=== PATIENT | female | born 1935 | race Caucasian/White ===

== ENCOUNTER 2016-10-24 11:16 | Inpatient (IN) | payer MEDICARE ==
[~2016-10-24] VITALS: Ht 165.1 cm; Wt 49.4 kg
[~2016-10-24 11:16] MED LIST: FENTANYL 100 MCG/2 ML AMP IV ONE; LIDOCAINE/EPI 1% MDV 20 ML INFILTRATE ONE
[2016-10-24] MEDS ORDERED: SODIUM CHLORIDE 0.9% 1,000 ML ONE ×2 (11:56→15:25)
[2016-10-24] MEDS ORDERED: MORPHINE 2 MG/ML SYR ONE (14:34)
[2016-10-24] MEDS ORDERED: KCL CR 20 MEQ TAB PO ONE (14:34)
[2016-10-24] MEDS ORDERED: POTASSIUM CHLOR 10MEQ -ED ONLY 50 ML IV ONE (14:35)
[2016-10-24] MEDS ORDERED: HEPARIN 20,000 UNIT/500 ML *DVT/PE IV SCH (15:35)
[2016-10-24] MEDS ORDERED: HEPARIN 5,000 UNITS/ML **DVT/PE IV PRN ×2 (15:35→20:30)
[2016-10-24 17:21] VITALS: BP_SYST 104; BP_SYST 108; RESP 16; TEMP 97.2
[2016-10-24 17:29] VITALS: BMI 18.1
[2016-10-24 19:53] VITALS: BP_SYST 115; RESP 18; TEMP 98.5
[2016-10-24] MEDS ORDERED: SODIUM CHLORIDE 0.9% 500 ML IV PRN (20:10)
[2016-10-24] MEDS ORDERED: SALINE FLUSH 10 ML FLUSH PRN ×2 (20:10)
[2016-10-24] MEDS ORDERED: ONDANSETRON 4 MG VIAL IV PUSH PRN (20:10)
[2016-10-24] MEDS ORDERED: ACETAMINOPHEN 325 MG TAB PO PRN (20:10)
[2016-10-24] MEDS: ASPIRIN 81 MG CHEW TAB PO SCH (20:24)
[2016-10-24] MEDS: Atorvastatin 20 MG TAB PO SCH (21:00)
[2016-10-24] MEDS ORDERED: NITROGLYCERIN SL 0.4 MG TAB SL PRN (21:30)
[2016-10-24] MEDS: PANTOPRAZOLE 40 MG VIAL IV SCH (23:02)
[2016-10-24] MEDS: D5 NS IV SCH (23:05)
[2016-10-24] MEDS: KCL IV SCH (23:05)
[2016-10-24 23:06] VITALS: RESP 18
[2016-10-25] VITALS (7 sets, daily range): BP systolic 106–147; RESP 16–20; TEMP 97.5–98.7; BMI 18.1
[2016-10-25] MEDS: SODIUM CHLORIDE 0.9% FLUSH BAG 500 ML IV SCH (05:43)
[2016-10-25] MEDS ORDERED: SODIUM CHLORIDE 0.9% FLUSH BAG 500 ML IV SCH (06:00)
[2016-10-25] MEDS ORDERED: SALINE FLUSH 10 ML FLUSH SCH (08:00)
[2016-10-25] MEDS ORDERED: KCL CR 10 MEQ TAB PO ONE (09:00)
[2016-10-25] MEDS: ASPIRIN 81 MG CHEW TAB PO SCH (09:00)
[2016-10-25] MEDS: CLOPIDOGREL 75 MG TAB PO SCH (09:00)
[2016-10-25] MEDS: PANTOPRAZOLE 40 MG VIAL IV SCH (09:00)
[2016-10-25] MEDS: SALINE FLUSH 10 ML FLUSH SCH ×2 (09:00→20:00)
[2016-10-25] MEDS: D5 NS IV SCH ×2 (11:12→22:32)
[2016-10-25] MEDS: KCL IV SCH ×2 (11:12→22:32)
[2016-10-25] MEDS: Atorvastatin 20 MG TAB PO SCH (20:35)
[2016-10-26] VITALS (29 sets, daily range): BP systolic 49–140; RESP 11–59; TEMP 95.7–97.5
[2016-10-26] MEDS: SODIUM CHLORIDE 0.9% FLUSH BAG 500 ML IV SCH ×3 (05:07→23:50)
[2016-10-26] MEDS: ASPIRIN 81 MG CHEW TAB PO SCH (08:53)
[2016-10-26] MEDS: CLOPIDOGREL 75 MG TAB PO SCH (08:53)
[2016-10-26] MEDS: SALINE FLUSH 10 ML FLUSH SCH ×2 (08:53→20:00)
[2016-10-26] MEDS: KCL IV SCH ×2 (08:54→18:46)
[2016-10-26] MEDS: D5 NS IV SCH ×2 (08:54→18:46)
[2016-10-26] MEDS ORDERED: CALCIUM CARB/VIT D3 600 MG TAB PO SCH (12:36)
[2016-10-26] MEDS ORDERED: CHOLECALCIFEROL 5,000 UNITS CAP PO SCH (12:37)
[2016-10-26] MEDS: METOPROLOL TART 25 MG TAB PO SCH ×2 (13:06→20:52)
[2016-10-26] MEDS: FLUTICASONE 0.05% NA BTL NARE EACH SCH ×2 (13:07→20:52)
[2016-10-26] MEDS: KCL CR 10 MEQ TAB PO SCH ×2 (13:07→16:00)
[2016-10-26] MEDS ORDERED: KCL CR 10 MEQ CAP PO SCH (13:18)
[2016-10-26] MEDS ORDERED: LORAZEPAM 2 MG/ML VIAL ONE (15:46)
[2016-10-26] MEDS ORDERED: LORAZEPAM 2 MG/ML VIAL IV ONE (15:50)
[2016-10-26] MEDS ORDERED: GABAPENTIN 300 MG CAP PO SCH (21:00)
[2016-10-26] MEDS ORDERED: Atorvastatin 20 MG TAB PO SCH (21:00)
[2016-10-26] MEDS ORDERED: PHARMACY TO DOSE VANCOMYCIN IV SCH (22:05)
[2016-10-26] MEDS ORDERED: VANCOMYCIN 1,000 MG in SODIUM CHLORIDE 0.9% 250 ML IV SCH (22:05)
[2016-10-26] MEDS ORDERED: METOPROLOL 5 MG/5 ML VIAL IV PRN (22:10)
[2016-10-26] MEDS ORDERED: POTASSIUM CHLORIDE PREMIX 50 ML IV PRN (22:10)
[2016-10-26] MEDS ORDERED: NOREPINEPHRINE 1 MG/ML 4 ML VIAL IV ONE (22:16)
[2016-10-26] MEDS ORDERED: VANCOMYCIN 1,000 MG in SODIUM CHLORIDE 0.9% 250 ML IV ONE (22:25)
[2016-10-26] MEDS ORDERED: NOREPINEPHRINE 16 MG in DEXTROSE 5% 234 ML IV SCH (22:30)
[2016-10-26] MEDS ORDERED: SODIUM CHLORIDE 0.9% 1,000 ML IV ONE (22:30)
[2016-10-26] MEDS: PROPOFOL 100 ML 100 ML IV PRN (22:51)
[2016-10-26] MEDS ORDERED: ALBUMIN HUMAN 25GM (25%) 100 ML IV ONE (23:05)
[2016-10-27] VITALS (53 sets, daily range): BP systolic 77–109; RESP 18–33; TEMP 95.8–100.5; Ht 165.1 cm; Wt 49.4 kg
[2016-10-27] MEDS ORDERED: CEFEPIME 1,000 MG in SODIUM CHLORIDE 0.9% 100 ML IV SCH ×2
[2016-10-27] MEDS: CHLORHEXIDINE 0.12% ORAL CARE FOR VENT PATIENTS 15 ML SWAB SCH ×2 (00:29→13:11)
[2016-10-27] MEDS ORDERED: MIDAZOLAM HCL 5 MG/5 ML VIAL ONE (03:04)
[2016-10-27] MEDS ORDERED: ETOMIDATE 2 MG/ML VIAL IV ONE (03:04)
[2016-10-27] MEDS ORDERED: PANTOPRAZOLE 40 MG TAB PO SCH (07:00)
[2016-10-27] MEDS ORDERED: DEXTROSE 50% SYRINGE 50 ML IV PRN (07:35)
[2016-10-27] MEDS ORDERED: Furosemide 40 MG/4 ML VIAL IV ONE (07:35)
[2016-10-27] MEDS ORDERED: INSULIN DRIP 1 UNIT/ML 100 ML IV SCH (07:35)
[2016-10-27] MEDS: SALINE FLUSH 10 ML FLUSH SCH ×2 (07:42→20:29)
[2016-10-27] MEDS ORDERED: CALCIUM CARB/VIT D3 600 MG TAB PO SCH (09:00)
[2016-10-27] MEDS: ASPIRIN 81 MG CHEW TAB PO SCH (09:00)
[2016-10-27] MEDS ORDERED: MISSING DOSE XX ONE (16:35)
[2016-10-27] MEDS: hePARIN in D5W (40 UNITS/ML) 500 ML IV SCH (16:45)
[2016-10-27] MEDS: PROPOFOL 100 ML 100 ML IV PRN (16:46)
[2016-10-27] MEDS ORDERED: AMIODARONE 150 MG in DEXTROSE 5% 100 ML IV ONE (16:55)
[2016-10-27] MEDS ORDERED: AMIODARONE 900 MG in DEXTROSE 5% EXCEL 500 ML IV SCH (16:55)
[2016-10-27] MEDS: AMIODARONE 450 MG in DEXTROSE 5% EXCEL 250 ML IV SCH (17:40)
[2016-10-27] MEDS ORDERED: ACETAMINOPHEN 650 MG SUPP RECTAL PRN (18:10)
[2016-10-27] MEDS: SODIUM CHLORIDE 0.45% 1,000 ML IV SCH (18:49)
[2016-10-27] MEDS: CEFEPIME 1,000 MG in SODIUM CHLORIDE 0.9% 100 ML IV SCH (20:31)
[2016-10-27] MEDS: FAMOTIDINE 20 MG INJ IV SCH (20:32)
[2016-10-28] VITALS (55 sets, daily range): BP systolic 83–121; RESP 12–31; TEMP 98.5–99.9
[2016-10-28] MEDS: CHLORHEXIDINE 0.12% ORAL CARE FOR VENT PATIENTS 15 ML SWAB SCH ×2 (00:45→12:10)
[2016-10-28] MEDS: SODIUM CHLORIDE 0.9% FLUSH BAG 500 ML IV SCH (00:46)
[2016-10-28] MEDS: AMIODARONE 450 MG in DEXTROSE 5% EXCEL 250 ML IV SCH (04:36)
[2016-10-28] MEDS: PROPOFOL 100 ML 100 ML IV PRN (04:37)
[2016-10-28] MEDS: SODIUM CHLORIDE 0.45% 1,000 ML IV SCH (06:17)
[2016-10-28] MEDS ORDERED: SODIUM CHLORIDE 0.9% 500 ML IV ONE (06:35)
[2016-10-28] MEDS: SALINE FLUSH 10 ML FLUSH SCH ×2 (08:18→20:05)
[2016-10-28] MEDS: FAMOTIDINE 20 MG INJ IV SCH ×2 (08:18→20:00)
[2016-10-28] MEDS ORDERED: VANCOMYCIN 1,000 MG in SODIUM CHLORIDE 0.9% 250 ML IV SCH (11:00)
[2016-10-28] MEDS: MAGNESIUM SULF 1 GM/100 ML 100 ML IV PRN ×2 (11:32→11:35)
[2016-10-28] MEDS ORDERED: NEOSTIGMINE 10 MG/10 ML VIAL IV SCH (12:00)
[2016-10-28] MEDS ORDERED: NEOSTIGMINE IV SCH (12:00)
[2016-10-28] MEDS ORDERED: ADMIX IV SCH (12:00)
[2016-10-28] MEDS: NEOSTIGMINE IV SCH ×2 (12:37→20:04)
[2016-10-28] MEDS: ADMIX IV SCH ×2 (12:37→20:04)
[2016-10-28] MEDS ORDERED: ATROPINE 1 MG/10 ML SYRINGE IV ONE (12:56)
[2016-10-28] MEDS ORDERED: MISSING DOSE XX ONE (19:20)
[2016-10-28] MEDS: CEFEPIME 1,000 MG in SODIUM CHLORIDE 0.9% 100 ML IV SCH (19:38)
[2016-10-29] VITALS (98 sets, daily range): BP systolic 72–143; RESP 14–31; TEMP 97.3–97.9
[2016-10-29] MEDS: PROPOFOL 100 ML 100 ML IV PRN ×2 (00:15→17:29)
[2016-10-29] MEDS: ADMIX IV SCH ×5 (01:25→23:23)
[2016-10-29] MEDS: NEOSTIGMINE IV SCH ×5 (01:25→23:23)
[2016-10-29] MEDS: CHLORHEXIDINE 0.12% ORAL CARE FOR VENT PATIENTS 15 ML SWAB SCH ×3 (01:27→23:37)
[2016-10-29] MEDS ORDERED: MISSING DOSE XX ONE (04:25)
[2016-10-29] MEDS ORDERED: AMIODARONE 150 MG in DEXTROSE 5% 100 ML IV ONE (05:25)
[2016-10-29] MEDS: hePARIN in D5W (40 UNITS/ML) 500 ML IV SCH (05:43)
[2016-10-29] MEDS: SODIUM CHLORIDE 0.9% FLUSH BAG 500 ML IV SCH (06:56)
[2016-10-29] MEDS: AMIODARONE 450 MG in DEXTROSE 5% AVIVA 250 ML IV SCH ×2 (06:57→13:59)
[2016-10-29] MEDS: FAMOTIDINE 20 MG INJ IV SCH ×2 (07:29→20:01)
[2016-10-29] MEDS: SALINE FLUSH 10 ML FLUSH SCH ×2 (07:30→20:00)
[2016-10-29] MEDS: SODIUM CHLORIDE 0.45% 1,000 ML IV SCH ×2 (07:31→17:10)
[2016-10-29] MEDS ORDERED: POTASSIUM CHLORIDE PREMIX 50 ML IV ONE (08:15)
[2016-10-29] MEDS ORDERED: ALBUMIN HUMAN 25GM (25%) 100 ML IV ONE (08:20)
[2016-10-29] MEDS ORDERED: PHARMACY TO DOSE ANTIBIOTIC IV SCH (08:25)
[2016-10-29] MEDS: MAGNESIUM SULF 1 GM/100 ML 100 ML IV SCH ×4 (08:54→12:53)
[2016-10-29] MEDS: SOLU-CORTEF 100 MG/2 ML IV SCH ×3 (08:55→23:37)
[2016-10-29] MEDS ORDERED: ALBUMIN 12.5 GM/50 ML (25%) IV ONE ×2 (09:00)
[2016-10-29] MEDS: FENTANYL 100 MCG/2 ML AMP IV PRN ×3 (09:23→14:43)
[2016-10-29] MEDS: CEFAZOLIN 1,000 MG in DEXTROSE 5% 50 ML IV SCH ×3 (10:16→23:22)
[2016-10-30] VITALS (56 sets, daily range): BP systolic 88–138; RESP 17–39; TEMP 96.4–97.8
[2016-10-30] MEDS: SODIUM CHLORIDE 0.45% 1,000 ML IV SCH ×2 (00:07→20:04)
[2016-10-30] MEDS: SODIUM CHLORIDE 0.9% FLUSH BAG 500 ML IV SCH ×2 (00:07→23:48)
[2016-10-30] MEDS ORDERED: MISSING DOSE XX ONE ×3 (02:15→16:40)
[2016-10-30] MEDS: PROPOFOL 100 ML 100 ML IV PRN ×2 (05:30→18:31)
[2016-10-30] MEDS: ADMIX IV SCH ×4 (06:15→23:31)
[2016-10-30] MEDS: NEOSTIGMINE IV SCH ×4 (06:15→23:31)
[2016-10-30] MEDS: SALINE FLUSH 10 ML FLUSH SCH ×2 (08:00→20:33)
[2016-10-30] MEDS: FAMOTIDINE 20 MG INJ IV SCH ×2 (08:13→20:33)
[2016-10-30] MEDS: SOLU-CORTEF 100 MG/2 ML IV SCH ×3 (08:13→23:30)
[2016-10-30] MEDS: CEFAZOLIN 1,000 MG in DEXTROSE 5% 50 ML IV SCH ×3 (08:15→23:30)
[2016-10-30] MEDS ORDERED: FILL PIGGYBACK IV SCH (09:00)
[2016-10-30] MEDS ORDERED: IVIG IV SCH (09:00)
[2016-10-30] MEDS ORDERED: POTASSIUM PHOSPHATE 15 MMOL in SODIUM CHLORIDE 0.9% 250 ML IV ONE (11:20)
[2016-10-30] MEDS: IVIG 20 GM IV SCH (12:14)
[2016-10-30] MEDS: CHLORHEXIDINE 0.12% ORAL CARE FOR VENT PATIENTS 15 ML SWAB SCH ×2 (12:22→23:31)
[2016-10-30] MEDS: AMIODARONE 200 MG TAB PO SCH (12:29)
[2016-10-30] MEDS: IVIG IV SCH (16:53)
[2016-10-30] MEDS: hePARIN in D5W (40 UNITS/ML) 500 ML IV SCH (16:56)
[2016-10-31] VITALS (86 sets, daily range): BP systolic 93–158; RESP 0–33; TEMP 96.8–97.3
[2016-10-31] MEDS: PROPOFOL 100 ML 100 ML IV PRN (04:29)
[2016-10-31] MEDS: NEOSTIGMINE IV SCH ×4 (06:42→23:35)
[2016-10-31] MEDS: ADMIX IV SCH ×4 (06:42→23:35)
[2016-10-31] MEDS: SALINE FLUSH 10 ML FLUSH SCH ×2 (08:28→21:05)
[2016-10-31] MEDS: AMIODARONE 200 MG TAB PO SCH (08:29)
[2016-10-31] MEDS: SOLU-CORTEF 100 MG/2 ML IV SCH ×2 (08:29→21:05)
[2016-10-31] MEDS: FAMOTIDINE 20 MG INJ IV SCH ×2 (08:29→21:06)
[2016-10-31] MEDS: CEFAZOLIN 1,000 MG in DEXTROSE 5% 50 ML IV SCH ×3 (08:29→23:36)
[2016-10-31] MEDS ORDERED: MISSING DOSE XX ONE ×2 (09:30→18:40)
[2016-10-31] MEDS: IVIG 20 GM IV SCH (10:11)
[2016-10-31] MEDS: CHLORHEXIDINE 0.12% ORAL CARE FOR VENT PATIENTS 15 ML SWAB SCH ×2 (12:33→23:36)
[2016-10-31] MEDS: IVIG IV SCH (12:33)
[2016-11-01] VITALS (78 sets, daily range): BP systolic 115–164; RESP 19–37; TEMP 94.4–97.5
[2016-11-01] MEDS: hePARIN in D5W (40 UNITS/ML) 500 ML IV SCH (01:21)
[2016-11-01] MEDS: PROPOFOL 100 ML 100 ML IV PRN (05:38)
[2016-11-01] MEDS: ADMIX IV SCH ×4 (05:41→23:44)
[2016-11-01] MEDS: NEOSTIGMINE IV SCH ×4 (05:41→23:44)
[2016-11-01] MEDS: SODIUM CHLORIDE 0.9% FLUSH BAG 500 ML IV SCH (05:42)
[2016-11-01] MEDS: SOLU-CORTEF 100 MG/2 ML IV SCH (07:49)
[2016-11-01] MEDS: CEFAZOLIN 1,000 MG in DEXTROSE 5% 50 ML IV SCH ×3 (07:49→23:45)
[2016-11-01] MEDS: SALINE FLUSH 10 ML FLUSH SCH ×2 (07:50→20:32)
[2016-11-01] MEDS: FAMOTIDINE 20 MG INJ IV SCH ×2 (07:50→20:32)
[2016-11-01] MEDS: AMIODARONE 200 MG TAB PO SCH (09:01)
[2016-11-01] MEDS: IVIG 20 GM IV SCH (09:19)
[2016-11-01] MEDS ORDERED: Furosemide 40 MG/4 ML VIAL IV ONE ×2 (09:55→10:35)
[2016-11-01] MEDS ORDERED: DILAUDID 1 MG/ML AMP IV PRN (11:30)
[2016-11-01] MEDS: IVIG IV SCH (12:15)
[2016-11-01] MEDS: CHLORHEXIDINE 0.12% ORAL CARE FOR VENT PATIENTS 15 ML SWAB SCH ×2 (12:15→23:45)
[2016-11-01] MEDS ORDERED: DEXMEDETOMIDINE 200 MCG in SODIUM CHLORIDE 0.9% 48 ML IV SCH (17:40)
[2016-11-02] VITALS (59 sets, daily range): BP systolic 109–153; RESP 16–27; TEMP 97.1–98
[2016-11-02] MEDS ORDERED: MISSING DOSE XX ONE (05:00)
[2016-11-02] MEDS: SODIUM CHLORIDE 0.9% FLUSH BAG 500 ML IV SCH (05:35)
[2016-11-02] MEDS: NEOSTIGMINE IV SCH ×4 (05:37→23:46)
[2016-11-02] MEDS: ADMIX IV SCH ×4 (05:37→23:46)
[2016-11-02] MEDS: hePARIN in D5W (40 UNITS/ML) 500 ML IV SCH (07:28)
[2016-11-02] MEDS: CEFAZOLIN 1,000 MG in DEXTROSE 5% 50 ML IV SCH ×2 (08:54→17:13)
[2016-11-02] MEDS: SALINE FLUSH 10 ML FLUSH SCH ×2 (08:55→19:59)
[2016-11-02] MEDS: FAMOTIDINE 20 MG INJ IV SCH ×2 (08:55→19:59)
[2016-11-02] MEDS: AMIODARONE 200 MG TAB PO SCH (08:56)
[2016-11-02] MEDS: POTASSIUM CHLORIDE PREMIX 50 ML IV SCH ×2 (10:05→11:29)
[2016-11-02] MEDS: IVIG 20 GM IV SCH (10:05)
[2016-11-02] MEDS: IVIG IV SCH (13:23)
[2016-11-02] MEDS: CHLORHEXIDINE 0.12% ORAL CARE FOR VENT PATIENTS 15 ML SWAB SCH ×2 (13:24→23:46)
[2016-11-02] MEDS: Furosemide 20 MG/2 ML VIAL IV SCH ×2 (13:28→19:58)
[2016-11-02] MEDS: MAGNESIUM SULF 1 GM/100 ML 100 ML IV SCH ×2 (14:56→17:11)
[2016-11-02] MEDS: METRONIDAZOLE 500 MG TAB NG SCH (23:46)
[2016-11-03] VITALS (42 sets, daily range): BP systolic 112–179; RESP 16–43; TEMP 96.5–98
[2016-11-03] MEDS: SODIUM CHLORIDE 0.9% FLUSH BAG 500 ML IV SCH (05:36)
[2016-11-03] MEDS: ADMIX IV SCH ×3 (05:37→19:03)
[2016-11-03] MEDS: NEOSTIGMINE IV SCH ×3 (05:37→19:03)
[2016-11-03] MEDS ORDERED: MISSING DOSE XX ONE ×2 (08:35→22:45)
[2016-11-03] MEDS: KCL 20 MEQ/15 ML UDC NG SCH (09:25)
[2016-11-03] MEDS: AMIODARONE 200 MG TAB PO SCH (09:25)
[2016-11-03] MEDS: METRONIDAZOLE 500 MG TAB NG SCH ×2 (09:25→17:01)
[2016-11-03] MEDS: Furosemide 20 MG/2 ML VIAL IV SCH ×2 (09:37→21:28)
[2016-11-03] MEDS: SALINE FLUSH 10 ML FLUSH SCH ×2 (09:37→21:28)
[2016-11-03] MEDS: FAMOTIDINE 20 MG INJ IV SCH ×2 (09:38→21:28)
[2016-11-03] MEDS: IVIG 20 GM IV SCH (10:02)
[2016-11-03] MEDS ORDERED: AMIODARONE 150 MG in DEXTROSE 5% 100 ML IV ONE (11:15)
[2016-11-03] MEDS: hePARIN in D5W (40 UNITS/ML) 500 ML IV SCH (11:25)
[2016-11-03] MEDS: CHLORHEXIDINE 0.12% ORAL CARE FOR VENT PATIENTS 15 ML SWAB SCH (11:38)
[2016-11-03] MEDS: DOXYCYCLINE 100 MG in SODIUM CHLORIDE 0.9% 250 ML IV SCH ×2 (12:13→21:28)
[2016-11-03] MEDS: AMIODARONE 450 MG in DEXTROSE 5% EXCEL 250 ML IV SCH ×2 (12:14→23:30)
[2016-11-03] MEDS: IVIG IV SCH (13:04)
[2016-11-04] VITALS (34 sets, daily range): BP systolic 119–169; RESP 13–41; TEMP 96.8–98.3
[2016-11-04] MEDS: NEOSTIGMINE IV SCH ×4 (00:19→17:02)
[2016-11-04] MEDS: ADMIX IV SCH ×4 (00:19→17:02)
[2016-11-04] MEDS: METRONIDAZOLE 500 MG TAB NG SCH ×3 (00:21→16:57)
[2016-11-04] MEDS: CHLORHEXIDINE 0.12% ORAL CARE FOR VENT PATIENTS 15 ML SWAB SCH ×2 (00:26→11:50)
[2016-11-04] MEDS: SODIUM CHLORIDE 0.9% FLUSH BAG 500 ML IV SCH (06:11)
[2016-11-04] MEDS: POTASSIUM CHLORIDE PREMIX 50 ML IV SCH ×4 (08:36→13:16)
[2016-11-04] MEDS: Furosemide 40 MG/4 ML VIAL IV SCH ×2 (08:37→19:35)
[2016-11-04] MEDS: KCL 20 MEQ/15 ML UDC NG SCH (08:37)
[2016-11-04] MEDS: DOXYCYCLINE 100 MG in SODIUM CHLORIDE 0.9% 250 ML IV SCH ×2 (08:38→19:34)
[2016-11-04] MEDS: FAMOTIDINE 20 MG INJ IV SCH ×2 (08:38→19:38)
[2016-11-04] MEDS: SALINE FLUSH 10 ML FLUSH SCH ×2 (08:43→20:00)
[2016-11-04] MEDS ORDERED: MISSING DOSE XX ONE ×2 (11:30→17:35)
[2016-11-04] MEDS: hePARIN in D5W (40 UNITS/ML) 500 ML IV SCH (19:31)
[2016-11-04] MEDS: AMIODARONE 200 MG TAB PO SCH (21:47)
[2016-11-05] VITALS (32 sets, daily range): BP systolic 105–150; RESP 0–32; TEMP 96.8–97.6
[2016-11-05] MEDS: METRONIDAZOLE 500 MG TAB NG SCH ×3 (00:49→17:12)
[2016-11-05] MEDS: ADMIX IV SCH ×4 (00:50→17:14)
[2016-11-05] MEDS: CHLORHEXIDINE 0.12% ORAL CARE FOR VENT PATIENTS 15 ML SWAB SCH ×2 (00:50→12:25)
[2016-11-05] MEDS: NEOSTIGMINE IV SCH ×4 (00:50→17:14)
[2016-11-05] MEDS: SODIUM CHLORIDE 0.9% FLUSH BAG 500 ML IV SCH ×2 (05:36→06:00)
[2016-11-05] MEDS: MAGNESIUM SULF 1 GM/100 ML 100 ML IV SCH ×4 (08:39→12:20)
[2016-11-05] MEDS: AMIODARONE 200 MG TAB PO SCH ×2 (08:40→20:17)
[2016-11-05] MEDS: FAMOTIDINE 20 MG INJ IV SCH ×2 (08:40→20:17)
[2016-11-05] MEDS: Furosemide 40 MG/4 ML VIAL IV SCH ×2 (08:40→20:17)
[2016-11-05] MEDS: DOXYCYCLINE 100 MG in SODIUM CHLORIDE 0.9% 250 ML IV SCH ×2 (08:40→20:17)
[2016-11-05] MEDS: KCL 20 MEQ/15 ML UDC NG SCH (08:41)
[2016-11-05] MEDS: SALINE FLUSH 10 ML FLUSH SCH ×2 (08:41→20:17)
[2016-11-05] MEDS: NYSTATIN PWD 100,000 UNITS/GM 15 GM TOPICAL SCH ×2 (10:26→20:18)
[2016-11-05] MEDS ORDERED: MIDAZOLAM 2 MG/2 ML INJ IV ONE ×2 (13:50)
[2016-11-05] MEDS ORDERED: LIDOCAINE 1% BUFFERED 1 ML SYR INTRADERM PRN ×2 (13:50)
[2016-11-05] MEDS ORDERED: ONDANSETRON 4 MG VIAL IV ONE (13:50)
[2016-11-05] MEDS ORDERED: LACT RINGERS 1,000 ML IV SCH ×2 (13:50)
[2016-11-05] MEDS ORDERED: GLYCOPYRROLATE 0.2 MG/ML VIAL IV ONE (13:50)
[2016-11-06] VITALS (40 sets, daily range): BP systolic 95–164; RESP 14–32; TEMP 94.2–98
[2016-11-06] MEDS: METRONIDAZOLE 500 MG TAB NG SCH ×3 (00:05→16:53)
[2016-11-06] MEDS: ADMIX IV SCH ×4 (00:05→17:16)
[2016-11-06] MEDS: NEOSTIGMINE IV SCH ×4 (00:05→17:16)
[2016-11-06] MEDS: CHLORHEXIDINE 0.12% ORAL CARE FOR VENT PATIENTS 15 ML SWAB SCH ×2 (00:06→12:02)
[2016-11-06] MEDS: SODIUM CHLORIDE 0.9% FLUSH BAG 500 ML IV SCH ×2 (05:18→05:24)
[2016-11-06] MEDS ORDERED: MIDAZOLAM 2 MG/2 ML INJ ONE (07:02)
[2016-11-06] MEDS ORDERED: ONDANSETRON 4 MG VIAL ONE (07:02)
[2016-11-06] MEDS: POTASSIUM CHLORIDE PREMIX 50 ML IV SCH ×2 (09:26→10:44)
[2016-11-06] MEDS: SALINE FLUSH 10 ML FLUSH SCH ×2 (09:30→20:30)
[2016-11-06] MEDS: KCL 20 MEQ/15 ML UDC NG SCH (12:00)
[2016-11-06] MEDS: NYSTATIN PWD 100,000 UNITS/GM 15 GM TOPICAL SCH ×2 (12:01→20:28)
[2016-11-06] MEDS: DOXYCYCLINE 100 MG TAB PEG SCH ×2 (12:01→20:28)
[2016-11-06] MEDS: FAMOTIDINE 20 MG TAB NG SCH ×2 (12:01→20:30)
[2016-11-06] MEDS: FENTANYL 100 MCG/2 ML AMP IV PRN ×2 (13:15→16:52)
[2016-11-06] MEDS: Furosemide 40 MG TAB NG SCH (16:53)
[2016-11-06] MEDS: SODIUM CHLORIDE 0.9% 1,000 ML IV SCH (17:07)
[2016-11-06] MEDS: AMIODARONE 200 MG TAB NG SCH (20:28)
[2016-11-07] VITALS (35 sets, daily range): BP systolic 87–142; RESP 7–31; TEMP 95.8–96.9
[2016-11-07] MEDS: METRONIDAZOLE 500 MG TAB NG SCH ×2 (00:45→09:26)
[2016-11-07] MEDS: CHLORHEXIDINE 0.12% ORAL CARE FOR VENT PATIENTS 15 ML SWAB SCH ×3 (00:46→23:25)
[2016-11-07] MEDS: NEOSTIGMINE IV SCH ×3 (00:47→11:58)
[2016-11-07] MEDS: ADMIX IV SCH ×3 (00:47→11:58)
[2016-11-07] MEDS: FAMOTIDINE 20 MG INJ IV SCH (01:48)
[2016-11-07] MEDS: Furosemide 40 MG/4 ML VIAL IV SCH (01:48)
[2016-11-07] MEDS: DOXYCYCLINE 100 MG in SODIUM CHLORIDE 0.9% 250 ML IV SCH (01:49)
[2016-11-07] MEDS: AMIODARONE 200 MG TAB PO SCH (01:49)
[2016-11-07] MEDS: SODIUM CHLORIDE 0.9% 1,000 ML IV SCH ×2 (04:51→17:24)
[2016-11-07] MEDS: SODIUM CHLORIDE 0.9% FLUSH BAG 500 ML IV SCH ×2 (05:50)
[2016-11-07] MEDS ORDERED: MISSING DOSE XX ONE (05:55)
[2016-11-07] MEDS: ENOXAPARIN 60 MG/0.6 ML SYR SUBQ SCH ×2 (06:10→17:25)
[2016-11-07] MEDS: MAGNESIUM SULF 1 GM/100 ML 100 ML IV SCH ×2 (06:33→08:06)
[2016-11-07] MEDS: SALINE FLUSH 10 ML FLUSH SCH ×2 (08:05→20:18)
[2016-11-07] MEDS: FENTANYL 100 MCG/2 ML AMP IV PRN ×2 (08:05→20:45)
[2016-11-07] MEDS ORDERED: PHARMACY TO DOSE ANTIBIOTIC XX SCH (09:00)
[2016-11-07] MEDS: KCL 20 MEQ/15 ML UDC NG SCH (09:26)
[2016-11-07] MEDS: AMIODARONE 200 MG TAB NG SCH (09:26)
[2016-11-07] MEDS: DOXYCYCLINE 100 MG TAB PEG SCH ×2 (09:26→20:19)
[2016-11-07] MEDS: FAMOTIDINE 20 MG TAB NG SCH (09:26)
[2016-11-07] MEDS: Furosemide 40 MG TAB NG SCH (09:32)
[2016-11-07] MEDS: NYSTATIN PWD 100,000 UNITS/GM 15 GM TOPICAL SCH ×2 (09:50→20:23)
[2016-11-07] MEDS: OXYCODONE 5 MG TAB GTUBE PRN ×4 (10:52→23:28)
[2016-11-07] MEDS ORDERED: *PATIENT RECEIVING TUBE FEEDS, ASSESS/ADJUST MEDICATIONS PEG SCH (11:10)
[2016-11-07] MEDS: PYRIDOSTIGMINE PEG SCH ×2 (17:25→20:19)
[2016-11-07] MEDS: METRONIDAZOLE 500 MG TAB PEG SCH ×2 (17:25→23:25)
[2016-11-07] MEDS: Furosemide 40 MG TAB PEG SCH (17:25)
[2016-11-07] MEDS: AMIODARONE 200 MG TAB PEG SCH (20:19)
[2016-11-07] MEDS: FAMOTIDINE 20 MG TAB PEG SCH (20:19)
[2016-11-08] VITALS (37 sets, daily range): BP systolic 89–134; RESP 8–24; TEMP 95–97.9
[2016-11-08] MEDS ORDERED: MISSING DOSE XX ONE (00:50)
[2016-11-08] MEDS: OXYCODONE 5 MG TAB GTUBE PRN ×4 (04:36→15:21)
[2016-11-08] MEDS: SODIUM CHLORIDE 0.9% 1,000 ML IV SCH (04:42)
[2016-11-08] MEDS: SODIUM CHLORIDE 0.9% FLUSH BAG 500 ML IV SCH ×2 (05:18)
[2016-11-08] MEDS: ENOXAPARIN 60 MG/0.6 ML SYR SUBQ SCH ×2 (05:34→17:43)
[2016-11-08] MEDS: KCL 20 MEQ/15 ML UDC PEG SCH (08:12)
[2016-11-08] MEDS: DOXYCYCLINE 100 MG TAB PEG SCH ×2 (08:12→20:13)
[2016-11-08] MEDS: AMIODARONE 200 MG TAB PEG SCH ×2 (08:12→20:13)
[2016-11-08] MEDS: SALINE FLUSH 10 ML FLUSH SCH ×2 (08:12→20:14)
[2016-11-08] MEDS: PYRIDOSTIGMINE PEG SCH ×4 (08:13→20:13)
[2016-11-08] MEDS: METRONIDAZOLE 500 MG TAB PEG SCH ×2 (08:13→15:21)
[2016-11-08] MEDS: Furosemide 40 MG TAB PEG SCH ×2 (08:13→17:40)
[2016-11-08] MEDS: FAMOTIDINE 20 MG TAB PEG SCH (08:13)
[2016-11-08] MEDS: NYSTATIN PWD 100,000 UNITS/GM 15 GM TOPICAL SCH ×2 (08:15→20:14)
[2016-11-08] MEDS ORDERED: SACCHA BOULARDII 250MG CAP PEG SCH (09:15)
[2016-11-08] MEDS: SACCHA BOULARDII 250MG CAP PEG SCH (10:20)
[2016-11-08] MEDS: CHLORHEXIDINE 0.12% ORAL CARE FOR VENT PATIENTS 15 ML SWAB SCH (11:53)
[2016-11-09] VITALS (29 sets, daily range): BP systolic 97–165; RESP 15–31; TEMP 96.6–97.3
[2016-11-09] MEDS: METRONIDAZOLE 500 MG TAB PEG SCH ×3 (01:24→16:51)
[2016-11-09] MEDS: SACCHA BOULARDII 250MG CAP PEG SCH ×3 (01:24→22:02)
[2016-11-09] MEDS: SODIUM CHLORIDE 0.9% FLUSH BAG 500 ML IV SCH ×2 (01:25→05:24)
[2016-11-09] MEDS: CHLORHEXIDINE 0.12% ORAL CARE FOR VENT PATIENTS 15 ML SWAB SCH ×2 (01:25→12:50)
[2016-11-09] MEDS: ENOXAPARIN 60 MG/0.6 ML SYR SUBQ SCH (05:58)
[2016-11-09] MEDS ORDERED: MISSING DOSE XX ONE (08:25)
[2016-11-09] MEDS: PYRIDOSTIGMINE PEG SCH ×4 (08:36→20:23)
[2016-11-09] MEDS: AMIODARONE 200 MG TAB PEG SCH ×2 (08:36→20:23)
[2016-11-09] MEDS: Furosemide 40 MG TAB PEG SCH ×2 (08:36→16:51)
[2016-11-09] MEDS: DOXYCYCLINE 100 MG TAB PEG SCH ×2 (08:37→20:23)
[2016-11-09] MEDS: SALINE FLUSH 10 ML FLUSH SCH ×2 (08:37→20:24)
[2016-11-09] MEDS: KCL 20 MEQ/15 ML UDC PEG SCH (08:51)
[2016-11-09] MEDS: NYSTATIN PWD 100,000 UNITS/GM 15 GM TOPICAL SCH ×2 (08:51→20:23)
[2016-11-09] MEDS: FAMOTIDINE 20 MG TAB PEG SCH (08:51)
[2016-11-09] MEDS: MAGNESIUM SULF 1 GM/100 ML 100 ML IV SCH ×2 (12:53→14:04)
[2016-11-09] MEDS: APIXABAN 5 MG TAB PO SCH (20:23)
[2016-11-09] MEDS ORDERED: APIXABAN 5 MG TAB GTUBE SCH (21:00)
[2016-11-10] VITALS (35 sets, daily range): BP systolic 88–145; RESP 18–30; TEMP 96.6–97.3
[2016-11-10] MEDS: CHLORHEXIDINE 0.12% ORAL CARE FOR VENT PATIENTS 15 ML SWAB SCH ×2 (00:07→11:22)
[2016-11-10] MEDS: Furosemide 40 MG TAB PEG SCH ×3 (00:08→17:16)
[2016-11-10] MEDS: METRONIDAZOLE 500 MG TAB PEG SCH ×3 (00:08→17:16)
[2016-11-10] MEDS: SODIUM CHLORIDE 0.9% FLUSH BAG 500 ML IV SCH ×3 (05:53→08:02)
[2016-11-10] MEDS: MAGNESIUM SULF 1 GM/100 ML 100 ML IV SCH ×3 (08:04→12:07)
[2016-11-10] MEDS: SALINE FLUSH 10 ML FLUSH SCH ×2 (08:25→20:01)
[2016-11-10] MEDS: PYRIDOSTIGMINE PEG SCH ×4 (08:26→20:01)
[2016-11-10] MEDS: APIXABAN 5 MG TAB PO SCH (08:26)
[2016-11-10] MEDS: AMIODARONE 200 MG TAB PEG SCH ×2 (08:26→20:01)
[2016-11-10] MEDS: DOXYCYCLINE 100 MG TAB PEG SCH ×2 (08:26→20:01)
[2016-11-10] MEDS: FAMOTIDINE 20 MG TAB PEG SCH (08:26)
[2016-11-10] MEDS: NYSTATIN PWD 100,000 UNITS/GM 15 GM TOPICAL SCH ×2 (08:27→20:00)
[2016-11-10] MEDS: SACCHA BOULARDII 250MG CAP PEG SCH ×2 (08:27→22:23)
[2016-11-10] MEDS: KCL 20 MEQ/15 ML UDC PEG SCH (08:28)
[2016-11-10] MEDS: POTASSIUM CHLORIDE PREMIX 50 ML IV SCH ×2 (08:58→09:59)
[2016-11-10] MEDS ORDERED: Furosemide 40 MG/4 ML VIAL IV ONE (09:40)
[2016-11-10] MEDS: APIXABAN 5 MG TAB PEG SCH (20:01)
[2016-11-11] VITALS (33 sets, daily range): BP systolic 86–141; RESP 14–30; TEMP 96–97.4
[2016-11-11] MEDS: METRONIDAZOLE 500 MG TAB PEG SCH ×4 (00:01→23:19)
[2016-11-11] MEDS: CHLORHEXIDINE 0.12% ORAL CARE FOR VENT PATIENTS 15 ML SWAB SCH ×2 (00:01→11:48)
[2016-11-11] MEDS: Furosemide 40 MG TAB PEG SCH ×2 (00:02→08:00)
[2016-11-11] MEDS: OXYCODONE 5 MG TAB GTUBE PRN (04:29)
[2016-11-11] MEDS: SODIUM CHLORIDE 0.9% FLUSH BAG 500 ML IV SCH ×2 (05:24)
[2016-11-11] MEDS: NEB-XOPENEX 0.63 MG/3 ML INH PRN ×5 (07:28→22:06)
[2016-11-11] MEDS: SALINE FLUSH 10 ML FLUSH SCH ×2 (07:56→20:05)
[2016-11-11] MEDS: DOXYCYCLINE 100 MG TAB PEG SCH ×2 (08:00→20:04)
[2016-11-11] MEDS: PYRIDOSTIGMINE PEG SCH (08:00)
[2016-11-11] MEDS ORDERED: Furosemide 40 MG/4 ML VIAL IV ONE (08:00)
[2016-11-11] MEDS: FAMOTIDINE 20 MG TAB PEG SCH (08:00)
[2016-11-11] MEDS: APIXABAN 5 MG TAB PEG SCH ×2 (08:00→20:05)
[2016-11-11] MEDS: NYSTATIN PWD 100,000 UNITS/GM 15 GM TOPICAL SCH ×2 (08:01→20:05)
[2016-11-11] MEDS: KCL 20 MEQ/15 ML UDC PEG SCH (08:01)
[2016-11-11] MEDS: AMIODARONE 200 MG TAB PEG SCH ×2 (08:01→20:04)
[2016-11-11] MEDS: SACCHA BOULARDII 250MG CAP PEG SCH ×2 (10:41→23:19)
[2016-11-11] MEDS: Furosemide 40 MG/4 ML VIAL IV SCH ×2 (17:31→23:19)
== END 2016-11-11 23:48 | DRG 4 ==
LOC: ENRESERVDT → ENRESERVTM → CANRESERV → ER 11:16 → EMR 15:06 → DELPENDDIS 15:06 → ENPENDDIS 15:06 → PCU2 17:07 → 3NT 10-26 18:19 → CCU 10-26 21:24
PROVIDERS: ADMIT Family Medicine; ATTEND Family Medicine
PROC: 5A1955Z Respiratory Ventilation, Greater than 96 Consecutive Hours (ICD-10-PCS; principal; 2016-10-26)
PROC: 0BH17EZ Insertion of Endotracheal Airway into Trachea, Via Natural or Artificial Opening (ICD-10-PCS; 2016-10-26)
PROC: 02HV33Z Insertion of Infusion Device into Superior Vena Cava, Percutaneous Approach (ICD-10-PCS; 2016-10-27)
PROC: B548ZZA Ultrasonography of Superior Vena Cava, Guidance (ICD-10-PCS; 2016-10-27)
PROC: 02HV33Z Insertion of Infusion Device into Superior Vena Cava, Percutaneous Approach (ICD-10-PCS; 2016-11-04)
PROC: 0DH63UZ Insertion of Feeding Device into Stomach, Percutaneous Approach (ICD-10-PCS; 2016-11-06)
PROC: 0B110F4 Bypass Trachea to Cutaneous with Tracheostomy Device, Open Approach (ICD-10-PCS; 2016-11-06 07:40)
DX: I82.412 Acute embolism and thrombosis of left femoral vein (principal); A41.01 Sepsis due to Methicillin susceptible Staphylococcus aureus; R65.21 Severe sepsis with septic shock; J69.0 Pneumonitis due to inhalation of food and vomit; I50.21 Acute systolic (congestive) heart failure; I48.2 Chronic atrial fibrillation; J96.01 Acute respiratory failure with hypoxia; G61.81 Chronic inflammatory demyelinating polyneuritis; N17.9 Acute kidney failure, unspecified; E87.0 Hyperosmolality and hypernatremia; Z68.1 Body mass index [BMI] 19.9 or less, adult; I82.442 Acute embolism and thrombosis of left tibial vein; I25.10 Atherosclerotic heart disease of native coronary artery without angina pectoris; Z95.5 Presence of coronary angioplasty implant and graft; Z79.82 Long term (current) use of aspirin; Z79.01 Long term (current) use of anticoagulants; E78.00 Pure hypercholesterolemia, unspecified; Z71.3 Dietary counseling and surveillance; M81.0 Age-related osteoporosis without current pathological fracture; I25.2 Old myocardial infarction; E87.6 Hypokalemia; I11.0 Hypertensive heart disease with heart failure; G70.00 Myasthenia gravis without (acute) exacerbation
CPT/HCPCS: 36415; 36558; 36569; 36600; 70450; 70551; 71010; 71020; 72141; 76937; 80048; 80053; 80061; 80069; 80076; 80202; 81001; 82607; 82746; 82803; 82947; 83018; 83605; 83735; 83880; 84100; 84132; 84238; 84439; 84443; 85025; 85610; 85730; 86141; 86256; 86618; 86663; 86664; 86665; 86666; 86753; 87040; 87071; 87077; 87186; 87493; 87799; 87804; 87903; 87904; 93005; 93306; 93880; 93970; 93971; 94002; 94003; 94640; 94799; 95819; 96361; 96365; 96375; 99223; 99232; 99233; 99239; 99291